=== PATIENT | female | born 1965 | race Caucasian/White ===

== ENCOUNTER → 2022-02-08 16:42 | Outpatient (CLI) | payer BC, SELFPAY ==
--- NOTE | ~2022-02-08 | XR_ITS ---
EXAMINATION:XR cervical spine 4-5V DATE: 02/08/2022 INDICATION: Radiculopathy TECHNIQUE: AP, lateral, lateral swimmers and odontoid views of the cervical spine are provided for in terpretation on 03/16/2022. COMPARISON: None FINDINGS: Straightening of the normal cervical lordosis which could be positional or due to muscle spasm. No sp ondylolisthesis or facet subluxation. Odontoid is intact. Normal atlantoaxial interval. Vertebral zach dy heights are normal. Disc spaces are normal. Minimal to mild cervical facet and uncovertebral osteo arthritis which does not result in significant neural foraminal stenosis on the left and right obliqu e radiographs. Prevertebral soft tissues are normal. IMPRESSION: 1. 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 Reviewed, dictated and finalized at location B.
== END ==
PROVIDERS: PCP Family Medicine; Visit Provider Family Medicine
DX: M54.12 Radiculopathy, cervical region (principal); M50.30 Other cervical disc degeneration, unspecified cervical region
CPT/HCPCS: 72050

== ENCOUNTER 2024-04-24 10:10 | Outpatient (CLI) | payer BC, SELFPAY ==
[2024-04-24 18:44] LABS: Basophils Absolute Auto 0.1 K/mm3 (0.0-0.1); Basophils Percent Auto 1.8 % (0.2-1.2); Eosinophils Absolute Auto 0.5 K/mm3 (0-0.3); Eosinophils Percent Auto 8.2 % (0-4.4); Hematocrit 39.1 % (37.0-47.0); Hemoglobin 12.3 g/dL (12.0-15.0); Immature Granulocyte Absolute 0.01 K/mm3 (0.00-0.031); Immature Granulocyte Percent A 0.2 % (0-0.5); Lymphocytes Absolute Auto 1.85 K/mm3 (0.9-3.2); Lymphocytes Percent Auto 33.2 % (18.3-44.2); Mean Corpuscular HGB Conc 31.5 g/dl (32-36); Mean Corpuscular Hemoglobin 31.6 pg (26-34); Mean Corpuscular Volume 100.5 fl (80-100); Mean Platelet Volume 12.1 fl (7.4-10.4); Monocytes Absolute Auto 0.5 K/mm3 (0.1-0.6); Monocytes Percent Auto 9.7 % (2.6-8.5); Neutrophils Absolute Auto 2.6 K/mm3 (1.3-6.7); Neutrophils Percent Auto 46.9 % (45.5-73.1); Platelet Count Result 226 k/mm3 (150-375); Red Blood Count 3.89 M/mm3 (4.2-5.4); Red Cell Distribution Width 13.2 % (11.5-14.5); White Blood Count 5.6 K/mm3 (4.5-10.0)
[2024-04-24 19:05] LABS: Alanine Aminotransferase 23 U/L (6-35); Albumin Level 4.4 g/dL (3.5-5.1); Alkaline Phosphatase 60 U/L (38-126); Anion Gap 5 mmol/L (4-12); Aspartate Amino Transferase 56 U/L (14-36); Bilirubin,Total 0.7 mg/dL (0.2-1.3); Blood Urea Nitrogen 18 mg/dL (7-17); Calcium 9.5 mg/dL (8.4-10.2); Carbon Dioxide 32 mmol/L (22-30); Chloride 103 mmol/L (98-107); Cholesterol 211 mg/dL (0-200); Estimated Glomerular Filt Rate > 60; Glucose 88 mg/dL (65-110); HDL Direct 92 mg/dL; Potassium 4.5 mmol/L (3.4-5.0); Sodium 140 mmol/L (137-145); Triglycerides 66 mg/dL (<150)
[2024-04-24 19:16] LABS: LDL Cholesterol Direct 84 mg/dL
== END 2024-04-24 10:11 | disposition home or self-care (01) ==
LOC: ANHGOSHLAB 10:11
PROVIDERS: PCP Family Medicine; Visit Provider Family Medicine
DX: Z00.00 Encounter for general adult medical examination without abnormal findings (principal)
CPT/HCPCS: 36415; 80053; 80061; 85025

== ENCOUNTER 2024-05-20 13:24 | Outpatient (CLI) | payer BC, SELFPAY | END 2024-05-20 13:25 | disposition home or self-care (01) | LOC: ANHBWCAUD 13:25 | PROVIDERS: PCP Family Medicine; Visit Provider Family Medicine | DX: H90.3 Sensorineural hearing loss, bilateral (principal); H93.13 Tinnitus, bilateral | CPT/HCPCS: 92557; 92567 ==

== ENCOUNTER 2024-07-08 20:49 | Emergency (ER) | payer BC, SELFPAY ==
--- OUTSIDE RECORDS SUMMARY | 2024-07-08 20:52 | XMS_ITS | Clinical Summary ---
Author Organization [facility] al Address [address] [place] [address] Care Team Providers Care Integrity Specialist Name Role Phone Sharon Javier MD Primary Care Provider + Allergies Active Allergy Reactions Criticality Noted Date Comments [employer] Pollen Medications norethindrone ethinyl estradiol (Loestrin 1.,) 1.5-30 mg-mcg tablet per tablet Ac tive mhcduqzt-qwj-xyum fum-folic ac 7.5 mg iron-400 mcg tablet Active omega 0-wen-jpb-fish oil (Fish Oil) 100-160-1,000 mg capsule Active calcium carbonate-vitamin D3 (Calcium 500 + D) 1,250mg (500mg elemental) - 5 mcg (200 units) per tablet Active loratadine (CLARITIN) 10 mg tablet Active Active Problems Problem Noted Date Diagnosed Date Abnormal mammogram 05/22/2012 Surgical History Surgery Date Site/Laterality Comments RHINOPLASTY Medical History Medical History Date Comments No pertinent past medical history Social History Tobacco Use Types Packs/Day Years Used Date Smoking Tobacco: Never Personal Safety Answer Date Recorded Getting School Help Needed Not on file 08/17 Comments Unknown Sex and Gender Information Value Date Recorded Sex Assigned at Not on file 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 Gender Identity Not on file Sexual Orientation Not on file Obstetrics History Last Filed Vital Signs Vital Sign Reading Time Taken Comments Blood Pressure 114/66 12/23/2020 12:24 PM CDT Pulse 77 12/23/2020 12:24 PM CDT Temperature 36.5 ??C (97.7 ??F) 12/23/2020 12:24 PM C DT Respiratory Rate 16 12/23/2020 12:24 PM CDT Oxygen Saturation 97% 12/23/2020 12:24 PM CDT Inhaled Oxygen Concentration - - Weight 61.2 kg (135 lb) 12/23/2020 12:24 PM CDT Height 170.8 cm (5' 7.25 ) 12/23/2020 12:24 PM C DT Body Mass Index 20.99 12/23/2020 12:24 PM CDT Plan of Treatment Not on file Insurance [employer] Member Subscriber Plan / Payer (Ef fective 2021-Present) Name:Cheryl Crowley Relation to Subscriber:Self Name:Cheryl Crowley Payer ID:[id number] (NAIC) Type:[employer] [address] [place] Care Teams Integrity Specialist Relationship Specialty Start Date End Date Sharon Javier MD PCP - General 10/06/16
--- OUTSIDE RECORDS SUMMARY | 2024-07-08 20:52 | XMS_ITS | Referral Summary ---
Author Organization [facility] al Address [address] [place] [address] Care Team Providers Care Human Resources Talent Manager Name Role Phone Sharon Javier MD Primary Care Provider + Allergies Active Allergy Reactions Criticality Noted Date Comments [employer] Pollen Medications norethindrone ethinyl estradiol (Loestrin 1.,) 1.5-30 mg-mcg tablet per tablet Ac tive fifvhbws-cne-yfxr fum-folic ac 7.5 mg iron-400 mcg tablet Active omega 9-xvk-agz-fish oil (Fish Oil) 100-160-1,000 mg capsule Active calcium carbonate-vitamin D3 (Calcium 500 + D) 1,250mg (500mg elemental) - 5 mcg (200 units) per tablet Active loratadine (CLARITIN) 10 mg tablet Active Active Problems Problem Noted Date Diagnosed Date Abnormal mammogram 05/22/2012 Social History Tobacco Use Types Packs/Day Years Used Date Smoking Tobacco: Never Personal Safety Answer Date Recorded Getting School Help Needed Not on file 08/17 Comments Unknown Sex and Gender Information Value Date Recorded Sex Assigned at Not on file 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
[2024-07-08 20:57] VITALS: BP 137/56; PULSE 60; RESP 16; TEMP 36.6; O2SAT 99
--- NOTE | 2024-07-08 22:13 | PC.NURSE ---
Pt states that she is feeling fine now and would like to leave. Pt encouraged to stay for MSE, but declines. Axox4 at this time and ambulatory with steady gait.
--- OUTSIDE RECORDS SUMMARY | 2024-07-08 22:22 | XMS_ITS | Referral Summary ---
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
--- OUTSIDE RECORDS SUMMARY | 2024-07-08 22:22 | XMS_ITS | Clinical Summary ---
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
== END 2024-07-08 22:13 | disposition left against medical advice (07) ==
LOC: ANHED 22:20
PROVIDERS: PCP Family Medicine
DX: R11.10 Vomiting, unspecified (principal)
CPT/HCPCS: 99199